=== PATIENT | male | born 1985 | race Caucasian/White ===

== ENCOUNTER 2018-01-02 16:34 | Emergency (ER) | payer BC, OTHER ==
[2018-01-02 18:55] VITALS: BP 105/72
--- NOTE | 2018-01-02 19:06 | UC ---
UC General HPI - HPI Summary HPI Summary: pt c/o 2 day hx sudden headache, bodyaches, fever/chills, scratchy throat and cough. child currently being tx for flu. no sob, cp, dysuria. D x1 . 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 Negative: Chest Pain, Dysuria, Diaphoresis, SOB <Belgica Yates - Last Filed: 01/02/18 19:18> <Astrid Sandoval - Last Filed: 01/03/18 07:01> - History of Current Complaint Chief Complaint: UCRespiratory Stated Complaint: FEVER/ACHES/CHILLS/COUGH Time Seen by Provider: 01/02/18 18:56 - Allergy/Home Medications Allergies/Adverse Reactions: Allergies Allergy/AdvReac Type Severity Reaction Status Date / Time No Known Allergies Allergy Verified 01/02/18 18:45 Home Medications: Home Medications D-Methorphan/PE/Acetaminophen [Day Multi-Symp Flu-Severe Cold] 1 each PO PRN [History] Dm/Acetaminophen/Doxylamine [Night Time Cold & Flu Liquid] 30 ml PO PRN [History] PMH/Surg Hx/FS Hx/Imm Hx - Additional Past Medical History Additional PMH: Healthy - Surgical History Surgical History: Yes Surgery Procedure, Year, and Place: [facility] - Family History Known Family History: Negative: Diabetes - Social History Occupation: Employed Full-time Lives: With Family Alcohol Use: Rare Substance Use Type: None Smoking Status (MU): Former Smoker When Did the Patient Quit Smoking/Using Tobacco: 15 YRS AGO - Immunization History Vaccination Up to Date: Yes <Belgica Yates - Last Filed: 01/02/18 19:18> Review of Systems Constitutional: Fever, Chills ENT: Sore Throat Respiratory: Cough Gastrointestinal: Diarrhea Musculoskeletal: Arthralgia, Myalgia Neurological: Headache Is Patient Immunocompromised?: No All Other Systems Reviewed And Are Negative: Yes <Belgica Yates - Last Filed: 01/02/18 19:18> Physical Exam Triage Information Reviewed: Yes Appearance: Ill-Appearing Vital Signs: Initial Vital Signs Temp 100.6 F 01/02/18 18:47 Pulse 99 01/02/18 18:47 Resp 18 01/02/18 18:47 BP 105/72 01/02/18 18:47 Pulse Ox 96 01/02/18 18:47 Vital Signs Reviewed: Yes Eye Exam: Normal ENT: Positive: Pharynx normal, TMs normal. Negative: Nasal congestion Neck: Positive: Supple, Nontender, No Lymphadenopathy Respiratory: Positive: Lungs clear, Normal breath sounds, No respiratory distress Cardiovascular: Positive: RRR, No Murmur Abdomen Description: Positive: Nontender, No Organomegaly, Soft Bowel Sounds: Positive: Present Musculoskeletal: Positive: No Edema Neurological: Positive: Alert Psychological: Positive: Normal Response To Family, Age Appropriate Behavior Skin Exam: Normal <Belgica Yates - Last Filed: 01/02/18 19:18> Vital Signs: Initial Vital Signs Temp 100.6 F 01/02/18 18:47 Pulse 99 01/02/18 18:47 Resp 18 01/02/18 18:47 BP 105/72 01/02/18 18:47 Pulse Ox 96 01/02/18 18:47 <Astrid Sandoval - Last Filed: 01/03/18 07:01> Course/Dx - Course Course Of Treatment: Hx and PE c/w influeza thus will tx for MICHAEL with tamiflu. - Differential Dx - Multi-Symptom Provider Diagnoses: Influenza like illness <Belgica Yates - Last Filed: 01/02/18 19:18> Discharge <Belgcia Yates - Last Filed: 01/02/18 19:18> <Astrid Sandoval - Last Filed: 01/03/18 07:01> - Discharge Plan Condition: Stable Disposition: HOME Prescriptions: Oseltamivir Phosphate [Tamiflu] 75 mg PO BID 5 Days #10 capsule Patient Education Materials: Influenza (ED) Forms: *Work Release Referrals: Fransisca Duncan PA [Primary Care Provider] - 5 Days Attestation Statement User Type: Provider - I was available for consult. This patient was seen by the NIGEL. The patient was not presented to, seen by, or examined by me. Noah <Astrid Sandoval - Last Filed: 01/03/18 07:01>
== END 2018-01-02 19:30 | disposition home or self-care (01) ==
LOC: UCCORT 16:34
DX: J11.1 Influenza due to unidentified influenza virus with other respiratory manifestations (principal); Z87.891 Personal history of nicotine dependence
CPT/HCPCS: 99202; G0463

== ENCOUNTER 2018-12-15 13:50 | Emergency (ER) | payer OTHER ==
[2018-12-15 14:59] VITALS: BP 144/64
--- NOTE | 2018-12-15 15:08 | UC ---
FLU HPI - HPI Summary HPI Summary: Cough with body aches and chills with headache starting yesterday. Daughters both sick. One diagnosed with flu. H/O asthma as a child. Wheezing. - History of Current Complaint Chief Complaint: UCRespiratory Stated Complaint: COUGH,FEVER,ACHES Time Seen by Provider: 12/15/18 15:00 Hx Obtained From: Patient Onset/Duration: Sudden Onset, Lasting Days - 1, Worse Since - onset Severity Currently: Moderate Severity Initially: Mild Pain Intensity: 5 Associated Signs & Symptoms: Positive: Fever, Myalgia, Cough, Sore Throat, Headache Related Hx: Possible Flu/Infectious Exposure, Recent Antipyretics Dose And Time - using tylenol and ibuprofen - Allergy/Home Medications Allergies/Adverse Reactions: Allergies Allergy/AdvReac Type Severity Reaction Status Date / Time No Known Allergies Allergy Verified 12/15/18 14:56 PMH/Surg Hx/FS Hx/Imm Hx Respiratory History: Asthma - as a child - Surgical History Surgical History: Yes Surgery Procedure, Year, and Place: [facility] - Family History Known Family History: Positive: Cardiac Disease, Hypertension Negative: Diabetes - Social History Occupation: Employed Full-time Lives: With Family Alcohol Use: Rare Substance Use Type: None Smoking Status (MU): Former Smoker When Did the Patient Quit Smoking/Using Tobacco: 15 YRS AGO - Immunization History Vaccination Up to Date: Yes Review of Systems All Other Systems Reviewed And Are Negative: Yes Constitutional: Positive: Chills, Fatigue ENT: Positive: Sore Throat Respiratory: Positive: Cough Musculoskeletal: Positive: Myalgia Neurological: Positive: Headache Is Patient Immunocompromised?: No Physical Exam Triage Information Reviewed: Yes Appearance: No Pain Distress, Well-Nourished, Ill-Appearing Vital Signs: Initial Vital Signs Temp 97.3 F 12/15/18 14:56 Pulse 94 12/15/18 14:56 Resp 17 12/15/18 14:56 BP 144/64 12/15/18 14:56 Pulse Ox 98 12/15/18 14:56 Vital Signs Reviewed: Yes Eyes: Positive: Conjunctiva Clear ENT: Positive: Pharynx normal, Nasal congestion, TMs normal Neck exam: Normal Respiratory: Positive: Lungs clear, Wheezing - expiratory wheeze with coughing. Cardiovascular Exam: Normal Musculoskeletal Exam: Normal Neurological Exam: Normal Psychological Exam: Normal Skin Exam: Normal Flu Course/Dx - Differential Dx/Diagnosis Differential Diagnosis/HQI/PQRI: Influenza, Pneumonia, RSV, Upper Respiratory Infection Provider Diagnosis: Influenza A, Bronchospasm, acute Discharge - Sign-Out/Discharge Documenting (check all that apply): Patient Departure All imaging exams completed and their final reports reviewed: No Studies - Discharge Plan Condition: Stable Disposition: HOME Prescriptions: Oseltamivir CAP* [Tamiflu CAP*] 75 mg PO BID #10 cap predniSONE TAB* [Deltasone 20 MG TAB*] 60 mg PO DAILY #18 tab Patient Education Materials: Influenza (ED), Oseltamivir (By mouth), Bronchospasm (ED), Prednisone (By mouth) Referrals: No Primary Care Phys,NOPCP [Primary Care Provider] - - Billing Disposition and Condition Condition: STABLE Disposition: Home
[2018-12-15 15:10] LABS: Influenza A Molecular POSITIVE (Negative)
== END 2018-12-15 15:29 | disposition home or self-care (01) ==
LOC: UCCORT 13:50
DX: J10.1 Influenza due to other identified influenza virus with other respiratory manifestations (principal); J98.01 Acute bronchospasm; Z87.891 Personal history of nicotine dependence
CPT/HCPCS: 99212; G0463